=== PATIENT | male | born 1945 | race Caucasian/White ===

== ENCOUNTER 2017-05-06 09:48 | Outpatient (CLI) | payer MEDICARE | END 2017-05-06 23:59 | disposition home or self-care (01) | LOC: RAD 09:48 | PROVIDERS: ATTEND Surgery | DX: Z01.818 Encounter for other preprocedural examination (principal); I70.0 Atherosclerosis of aorta; M46.04 Spinal enthesopathy, thoracic region | CPT/HCPCS: 71020-TC ==

== ENCOUNTER 2017-05-26 05:41 | Day surgery (SDC) | payer MEDICARE ==
[~2017-05-26] VITALS: Ht 167.6 cm; Wt 78.9 kg
[2017-05-26] MEDS ORDERED: BUPIVACAINE MPF 0.5% W/EPI INJ 30 ML VIAL ONE (07:08)
[2017-05-26] MEDS ORDERED: LIDOCAINE 0.5% HCL 50 ML VIAL ONE (07:08)
[2017-05-26] MEDS ORDERED: FENTANYL PF 250MCG/5ML AMPUL ONE (07:17)
[2017-05-26] MEDS ORDERED: METOCLOPRAMIDE HCL 10 MG/2 ML VIAL ONE (07:17)
[2017-05-26] MEDS ORDERED: MIDAZOLAM HCL 2 MG/2ML VIAL ONE (07:17)
[2017-05-26] MEDS ORDERED: CEFAZOLIN SODIUM/DEXTROSE,ISO 50 ML IV ONE (08:35)
[2017-05-26] MEDS ORDERED: BACITRACIN 50000 UNITS/VIAL ONE (08:43)
[2017-05-26] MEDS ORDERED: KETOROLAC TROMETHAMINE INJ 30 MG/ML VIAL ONE (09:38)
[2017-05-26] MEDS ORDERED: HYDROMORPHONE 1 MG/1 ML DISP.SYRIN ONE (10:00)
[2017-05-26] MEDS ORDERED: HYDROCODONE/APAP 10/325MG 1 EA TABLET ONE (10:46)
[2017-05-26] MEDS ORDERED: ONDANSETRON HCL/PF 4 MG/2 ML VIAL IV PRN (11:30)
[2017-05-26] MEDS ORDERED: GABAPENTIN 300 MG CAPSULE PO ONE (11:30)
[2017-05-26] MEDS ORDERED: IV LR 1000 ML 1,000 ML IV PRN (11:30)
[2017-05-26] MEDS ORDERED: ACETAMINOPHEN 325 MG TABLET PO ONE (11:30)
[2017-05-26] MEDS ORDERED: IBUPROFEN 200 MG TABLET PO ONE (11:30)
[2017-05-26] MEDS ORDERED: HYDROCODONE/APAP 10/325MG 1 EA TABLET PO PRN (11:30)
[2017-05-26] MEDS ORDERED: ANESTHESIA TRAY IN PYXIS 1 EA TRAY MC ONE (12:08)
== END 2017-05-26 11:00 ==
LOC: DS 05:41
PROVIDERS: ATTEND Surgery
DX: K40.30 Unilateral inguinal hernia, with obstruction, without gangrene, not specified as recurrent (principal); E11.9 Type 2 diabetes mellitus without complications; I10 Essential (primary) hypertension
CPT/HCPCS: 82962-TC; 88302-TC; 88305-TC; A6402; C1781; J0690; J1170; J1885; J2250; J2405; J2704; J2765; J3010; J3490

== ENCOUNTER 2019-02-28 10:06 | Outpatient (CLI) | payer MEDICARE | END 2019-02-28 23:59 | disposition home or self-care (01) | LOC: RAD 10:06 | PROVIDERS: ATTEND Surgery | DX: Z01.818 Encounter for other preprocedural examination (principal); I70.0 Atherosclerosis of aorta; M46.04 Spinal enthesopathy, thoracic region | CPT/HCPCS: 71046 ==